=== PATIENT | female | born 1980 | race Caucasian/White ===

== ENCOUNTER 2022-04-21 07:21 | Day surgery (SDC) | payer MEDICAID, OTHER ==
[~2022-04-21] VITALS: Ht 165.1 cm; Wt 102.1 kg
[2022-04-21] MEDS ORDERED: diphenhydrAMINE 50 MG/ML VIAL ONE (08:18)
[2022-04-21] MEDS ORDERED: MIDAZOLAM 5 MG/5 ML VIAL ONE (08:19)
[2022-04-21] MEDS ORDERED: fentaNYL citrate 0.05 MG/ML VIAL ONE (08:19)
[2022-04-21] MEDS ORDERED: MIDAZOLAM 2 MG/2 ML VIAL IVP ONE (09:10)
[2022-04-21] MEDS ORDERED: fentaNYL citrate 0.05 MG/ML VIAL IVP ONE (09:10)
[2022-04-21] MEDS ORDERED: diphenhydrAMINE 50 MG/ML VIAL IVP ONE (09:10)
== END 2022-04-21 10:25 | disposition home or self-care (01) ==
LOC: MDS 07:21 → MMU 07:22 → MDS 10:25
PROVIDERS: ATTEND Internal Medicine Gastroenterology
DX: K21.9 Gastro-esophageal reflux disease without esophagitis (principal); K29.70 Gastritis, unspecified, without bleeding; K31.89 Other diseases of stomach and duodenum; E66.01 Morbid (severe) obesity due to excess calories; Z68.37 Body mass index [BMI] 37.0-37.9, adult; Z90.49 Acquired absence of other specified parts of digestive tract; Z86.39 Personal history of other endocrine, nutritional and metabolic disease; E78.5 Hyperlipidemia, unspecified; Z79.899 Other long term (current) drug therapy; Z20.822 Contact with and (suspected) exposure to COVID-19
CPT/HCPCS: J1200; J2250; J3010